=== PATIENT | female | born 1960 | race Two or more races ===

== ENCOUNTER 2023-10-18 21:53 | Emergency (ER) | payer MEDICAID, OTHER ==
[~2023-10-18] VITALS: Ht 180.3 cm; Wt 89.0 kg
[2023-10-19 00:17] VITALS: BP 148/74; PULSE 74; RESP 16; TEMP 98.3; O2SAT 96
[2023-10-19] MEDS ORDERED: PRED20TA2 PO (01:09)
[2023-10-19] MEDS ORDERED: IBUP-1456 PO (01:09)
[2023-10-19] MEDS ORDERED: AZIT-43 PO (01:09)
[2023-10-19] MEDS: IBUPROFEN 800 MG TAB PO ONE (01:12)
== END 2023-10-19 01:20 | disposition home or self-care (01) ==
LOC: ER 21:53 → EDBD 21:53 → ER 10-19 01:16
DX: S10.0XXA Contusion of throat, initial encounter (principal); J18.9 Pneumonia, unspecified organism; Z86.718 Personal history of other venous thrombosis and embolism; Z90.49 Acquired absence of other specified parts of digestive tract; W01.198A Fall on same level from slipping, tripping and stumbling with subsequent striking against other object, initial encounter; Y93.89 Activity, other specified; Y92.89 Other specified places as the place of occurrence of the external cause; Y99.8 Other external cause status
CPT/HCPCS: 71250